=== PATIENT | female | born 1970 | race Caucasian/White ===

== ENCOUNTER → 2018-10-21 | Outpatient (CLI) | payer BC ==
[~2018-10-21] MED LIST: ALBU2.5V8 INH; AMIT10TA PO; ERGO500027 PO; FLUT1DIS3 IH; LEVO175T5 PO; OMEP1CAP18 PO; OXYB5TAB33 PO; SUMA100T4 PO
[2018-10-21 15:20] LABS: BILIRUBIN,URINE NEGATIVE (NEG); CLARITY,URINE CLEAR; COLOR,URINE YELLOW; NITRITE,URINE NEGATIVE (NEG); PROTEIN,URINE NEGATIVE (NEG-TRACE); UROBILINOGEN,URINE 0.2 mg/dL (0.2 mg/dL)
[2018-10-21 15:40] LABS: BACTERIA,URINE 0 /HPF (0-FEW); RBC,URINE 0 /HPF (0-2); WBC,URINE 0 /HPF (0-4)
[2018-10-21 15:54] LABS: BASO % 1 % (0-3); EOS # 0.3 x10^3/uL (0.0-0.7); EOS % 6 % (0-3); HEMATOCRIT 40.8 % (36.0-47.0); HEMOGLOBIN 14.1 g/dL (12.0-15.5); LYMPH # 1.9 x10^3/uL (1.0-4.8); LYMPH % 40 % (24-48); MEAN CORPUSCULAR HEMOGLOBIN 34 pg (25-35); MEAN CORPUSCULAR HGB CONC 35 g/dL (31-37); MEAN CORPUSCULAR VOLUME 97 fL (79-100); MONO # 0.4 x10^3/uL (0.0-1.1); MONO % 9 % (0-9); NEUT # 2.2 x10^3uL (1.8-7.7); NEUT % 46 % (31-73); PLATELET COUNT 192 x10^3/uL (140-400); RED BLOOD COUNT 4.19 x10^6/uL (3.50-5.40); RED CELL DISTRIBUTION WIDTH 13.2 % (11.5-14.5); WHITE BLOOD COUNT 4.7 x10^3/uL (4.0-11.0)
--- NOTE | 2018-10-21 15:54 | EKG ---
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 Electronically Signed On 10-28-2018 11:23:25 MICROWAVE TECHNICIAN by Tee Hurtado
[2018-10-21 16:19] LABS: ALBUMIN 3.5 g/dL (3.4-5.0); ALBUMIN/GLOBULIN RATIO 0.9 (1.0-1.7); CALCIUM 8.8 mg/dL (8.5-10.1); CREATININE 0.8 mg/dL (0.6-1.0); GFR 76.2; POTASSIUM 3.4 mmol/L (3.5-5.1); TOTAL BILIRUBIN 0.2 mg/dL (0.2-1.0); TOTAL PROTEIN 7.2 g/dL (6.4-8.2)
--- NOTE | 2018-10-21 17:20 | RAD ---
CHEST PA LATERAL Clinical indications: PRE OP HYSTERECTOMY ON 10/28/18. HX of ASTHMA Findings: No acute lung infiltrate or pleural effusion or pulmonary edema or lung mass or pneumothorax is seen. The heart size, pulmonary vasculature, mediastinum and both ck are unremarkable. The osseous structures appear intact. Impression: No acute radiographic abnormality is seen. Note-no left or right marker is present on the frontal view chest x-ray. Electronically signed by: Forrest Quiñones MD (10/21/2018 5:16 PM) [place] [id number]
--- NOTE | 2018-10-23 10:08 | NUR ---
FAXED PRE - OP TEST REPORTS TO 'S OFFICE FOR REVIEW 10/22/2018 AT 0960 AND RECEIVED TRANSMITTAL CONFIRMATION. ANESTHESIA TEAM RN VINAY PUTNAM REVIEWED EKG'S PRELIMINARY REPORT 10/22/2018 AT 1005 AND WAS OKAY HE SAID.
== END | disposition home or self-care (01) ==
LOC: SURGPAT 14:56
PROVIDERS: ATTEND Obstetrics & Gynecology
DX: Z01.818 Encounter for other preprocedural examination (principal); E03.9 Hypothyroidism, unspecified; J45.909 Unspecified asthma, uncomplicated; Z90.710 Acquired absence of both cervix and uterus
CPT/HCPCS: 36415; 71046; 80053; 81001; 85025; 93005

== ENCOUNTER 2018-10-28 08:16 | Observation (INO) | payer BC ==
[~2018-10-28] VITALS: Ht 152.4 cm; Wt 84.4 kg
[2018-10-28] VITALS (11 sets, daily range): BP systolic 83–122; BP diastolic 54–72
[~2018-10-28 08:16] MED LIST changes: +HYDROmorphone 2 MG/ML VIAL IV PRN; +IV RINGERS,LACTATED 1000ML 1,000 ML IV SCH; +LIDOCAINE 1% PF 2 ML VIAL. ID PRN; +MORPHINE SULFATE 4 MG/ML VIAL. IV PRN; +ONDANSETRON PF 4 MG/2 ML VIAL. IV PRN; -OXYB5TAB33 PO; +PROCHLORPERAZINE 10 MG/2 ML VIAL. IV PRN; +fentaNYL PF VIAL 100 MCG/2 ML VIAL IV PRN
[2018-10-28] MEDS ORDERED: fentaNYL PF VIAL 100 MCG/2 ML VIAL ONE (08:25)
[2018-10-28] MEDS ORDERED: ROCURONIUM 50 MG/5 ML VIAL. ONE ×2 (08:25→11:47)
[2018-10-28] MEDS ORDERED: PROPOFOL 20 ML IV ONE (08:25)
[2018-10-28] MEDS ORDERED: LIDOCAINE 2% PF Vial for OR 5 ML VIAL. ONE (08:25)
[2018-10-28] MEDS ORDERED: DEXAMETHASONE SOD PHOS 20 MG/5 ML VIAL. ONE (08:25)
[2018-10-28] MEDS ORDERED: MIDAZOLAM HCL/PF 2 MG/2 ML VIAL. ONE (08:25)
[2018-10-28] MEDS ORDERED: ONDANSETRON PF 4 MG/2 ML VIAL. ONE (08:25)
[2018-10-28] MEDS ORDERED: ESTROGENS, CONJ VAGINAL CREAM 30GM TUBE. ONE (09:06)
[2018-10-28] MEDS ORDERED: BUPIVAC MPF-EPI 0.5%-1:200000 30 ML VIAL. ONE (09:06)
[2018-10-28] MEDS ORDERED: METHYLENE BLUE 1% 10 ML VIAL. ONE (09:06)
[2018-10-28] MEDS ORDERED: SCOPOLAMINE 1.5MG PATCH. TD ONE (09:30)
[2018-10-28] MEDS ORDERED: ceFAZolin 2GM PREMIX 2 GM/50 ML BAG IV ONE (10:00)
[2018-10-28] MEDS ORDERED: SUMAtriptan SUCCINATE 100 MG TABLET PO PRN (10:15)
[2018-10-28] MEDS ORDERED: ALBUTEROL SULFATE 2.5 MG/3 ML NEBU. NEB PRN (10:15)
[2018-10-28 10:58] LABS: U PREG PATIENT NEGATIVE (NEG)
[2018-10-28] MEDS ORDERED: NEOSTIGMINE METHYLSULFATE 5 MG/5 ML SYRINGE. ONE (11:26)
[2018-10-28] MEDS ORDERED: GLYCOPYRROLATE 1 MG/5 ML VIAL. ONE (11:26)
[2018-10-28] MEDS ORDERED: SEVOFLURANE > 120 MINUTES. IH ONE (11:49)
--- NOTE | 2018-10-28 12:25 | PDOC ---
BRIEF OPERATIVE NOTE Date: Oct 28, 2018 Pre-Op Diagnosis DUB Post-Op Diagnosis same with bladder adhesions from prior Procedure Performed LAVH/BSO and adhesiolysis Surgeon Dr. Sherita Garner Elastic Yarn Twister GUNNAR Terrazas Anesthesiologist Dr. Cordova Anesthesia Type: General Blood Loss 300cc IV Fluid 1100cc Urine Output 250cc clear via squires Specimens Obtained cervix, uterus, bilateral tubes and ovaries Findings enlarged RV uterus, normal bilateral tubes and right ovary, small functional cyst on left ovary, dense bladder adhesions Complications none Operative Note [id number] SHERITA GARNER MD Oct 28, 2018 12:25
[2018-10-28] MEDS ORDERED: NALOXONE 0.4 MG/ML VIAL. IV PRN (12:30)
[2018-10-28] MEDS ORDERED: HYDROcodone/APAP 5/325MG 1 TAB TABLET PO PRN (12:30)
[2018-10-28] MEDS ORDERED: diphenhydrAMINE HCL 25 MG CAPSULE PO PRN (12:30)
[2018-10-28] MEDS ORDERED: ZOLPIDEM 5 MG TABLET. PO PRN (12:30)
[2018-10-28] MEDS ORDERED: MAG HYDROX/ALUMINUM HYD/SIMETH 30 ML ORAL.SUSP PO PRN (12:30)
[2018-10-28] MEDS ORDERED: CALCIUM CARBONATE 500 MG TAB.CHEW PO PRN (12:30)
[2018-10-28] MEDS ORDERED: ONDANSETRON PF 4 MG/2 ML VIAL. IV PRN (12:30)
[2018-10-28] MEDS ORDERED: MORPHINE SULFATE 4 MG/ML VIAL. IV PRN (12:30)
[2018-10-28] MEDS ORDERED: diphenhydrAMINE 50 MG/ML VIAL IV PRN (12:30)
[2018-10-28] MEDS ORDERED: 0.9 % SODIUM CHLORIDE 10 ML DISP.SYRIN. IV PRN (12:30)
[2018-10-28] MEDS ORDERED: MAGNESIUM HYDROXIDE 2,400 MG/30 ML ORAL.SUSP. PO PRN (12:30)
[2018-10-28] MEDS ORDERED: LACTULOSE 20 GM/30 ML SOLUTION. PO PRN (12:30)
--- NOTE | 2018-10-28 12:55 | OP ---
DATE OF SURGERY: 10/28/2018 PREOPERATIVE DIAGNOSIS: Dysfunctional uterine bleeding. POSTOPERATIVE DIAGNOSES: Dysfunctional uterine bleeding with what appeared to be some mild endometriosis and bladder adhesions from a prior section. PROCEDURE: LAVH, BSO with adhesiolysis. SURGEON: Nabil Lal M.D. CROSS TIE TURNER: Dian Massey RN. ANESTHESIOLOGIST: Brice Cordova MD. ANESTHESIA: General. ESTIMATED BLOOD LOSS: 300 mL. URINE OUTPUT: 250 mL, clear via Thornton catheter. IV FLUIDS: 1100 mL of crystalloid. SPECIMENS: Cervix, uterus, bilateral tubes and ovaries. FINDINGS: An enlarged retroverted uterus, mild endometriosis on the left pelvic sidewall and ureter area, normal bilateral tubes, normal right ovary, small functional cyst on left ovary and dense bladder adhesions. COMPLICATIONS: None. DESCRIPTION OF PROCEDURE: This patient was taken to the operating room where general anesthesia was placed. The patient was placed in dorsal lithotomy position in Jacky stirrups. The patient's abdomen and vagina were prepped and draped in the normal sterile fashion and a Thornton catheter was inserted under sterile technique. After a timeout was performed, a bivalve speculum was placed in the patient's vagina. Single-tooth tenaculum was used to grasp the anterior lip of the cervix. A 0.5% Marcaine with epinephrine 10 mL was used to circumferentially inject around the cervix for both hemodissection and hemostatic purposes later. The Valtchev uterine manipulator was placed through the endocervical os, locked on the single tooth tenaculum and the bivalve speculum was then removed. Top gloves were discarded and changed. Attention was then turned to the abdomen where a small supraumbilical skin incision was made with the scalpel. A curved Maria Alejandra was used to dissect through the subcuticular layer to the fascia. The 5 mm Visiport was used to directly into the abdominal cavity. Opening patient pressure was 3-4 mmHg. Direct abdominal placement was confirmed via the laparoscope. Carbon dioxide gas was used to then appropriately insufflate the abdominal cavity to maintain a pressure of 15 mmHg. The patient was placed in Trendelenburg position and the left lower quadrant port was placed after transilluminating the abdomen finding an area clear of any vasculature, making sure it was clear on the inside, making an incision and placing the 5 mm trocar under direct visualization and 2 mL of air was placed in the trocar cuff here. At this point, the scope was moved to look at the umbilical port. There was a small adhesion in front of it, but the port was actually free of the adhesion and it looked like just omental adhesions, so 2 mL of air was placed in this. We did not touch those umbilical adhesions. We were able to get around it, put the right lower quadrant port in again after finding an area clear on the inside transilluminating the abdomen finding an area clear of any vasculature and making a small incision and placing the 5 mm trocar in and placing 2 mL of air in as well. At this point, the right tube and ovary were elevated, finding the ureter coursing, staying high on the IP ligament just below the ovary, cauterizing and cutting with the LigaSure going over towards the uterus, crossing the right round ligament and getting the right uterine vessels and starting the bladder flap on the right side. This was done exactly the same on the left. The left had a small 1-2 cm clear functional cyst on the ovary, but it was elevated. The ureter was coursing low. There was some scar tissue on the left pelvic sidewall and evidence of what looked like endometriosis along the sidewall and the ureter area on the left, but again staying high on the IP ligament, right under the ovary, cauterizing and cutting with the LigaSure, going over all the way to the uterus and then crossing the left round ligament and then pushing in on the uterus towards the head of the bed and elevating the bladder using the monopolar hook to make an incision and take down some of the bladder adhesions sharply and was able to get them on both sides, so I could get the uterine vessels on both sides. I was able to go below especially on the patient's left side, going down on the left side to the uterosacral ligament, hugging the cervix, staying vertical on the cervix through the cardinal and broad ligaments to the uterosacral. I did not go quite as well in the right side as the bladder did not peel on this side as well, but I was able to get the uterines and go down a little bit. At this point, I felt it was better to go vaginally to see better and get the rest of the bladder flap. So, all instruments were removed from the abdomen. Posterior uterus was completely free and it was blanched and the uterine vessels like I said have been obtained and we were down on the right side, so all instruments were removed from the abdomen and attention was turned vaginally. At this point, the single tooth and Valtchev were removed. A weighted speculum was placed in the patient's vagina. Thyroid Tyler clamps were placed on the anterior and posterior lips of the cervix respectively. A scalpel was used to make a circumferential incision in the cervix. An open Ray-Heri 4 x 4 was used to gently push up the anterior bladder peritoneum and it did push up very nicely, especially on the patient's left side. The cervix was elevated and the posterior cul-de-sac was sharply entered with curved Evans scissors. A #0 Vicryl stitch was used to secure the posterior peritoneum here to the vaginal cuff and it was tagged with a curved Maria Alejandra clamp. The needle was cut and passed off. The short weighted speculum was removed and it was replaced with the long weighted Kasia speculum in the posterior cul-de-sac. At this point, curved Chanell clamps x 2 were placed on the patient's left uterosacral ligament. They were doubly clamped with curved Heaneys, cut with curved Evans scissors and suture ligated x 2 with 0 Vicryl. Second one was taken through the vaginal cuff securing uterosacral ligament to the vaginal cuff. It was tagged with a straight Maria Alejandra clamp and the needle was cut and passed off. This was done exactly the same on the patient's right side, double clamping the uterosacrals with curved Chanell's, cutting with Evans scissors, suture ligating x 2 with 0 Vicryl, taking the second one through the vaginal cuff and tagging it with a straight Maria Alejandra clamp and cutting and passing the needle off. I was able to get in on the patient's left side anteriorly and I took a right angle Mixter around the remaining pedicle and the vaginal LigaSure was used to cauterize the remaining pedicle and I was free on this left side. I could still feel the dense bladder adhesions anteriorly. I was able to remove the anterior Ray-Heri and take a new one and gently push it up even more and then used some Metzenbaum scissors to take it down even more. I took the Mixter around the right side as well, cauterizing and cutting the remaining pedicle. Cervix, uterus, bilateral tubes and ovaries were delivered in total and passed off for permanent pathology. The anterior bladder peritoneum was grasped with a long Allis. A sponge stick was used to examine the pedicles. She was bleeding from the left side just above the uterosacral ligament. A burlisher was placed on this with excellent results and 2-0 Vicryl was used to tie off this bleeding. Once this was done, the long weighted Kasia speculum was removed and replaced with the short weighted vaginal speculum and the sponge stick was used to examine the remaining pedicles, which appeared hemostatic at this point, so 2-0 Vicryl was taken through the anterior bladder peritoneum, left uterosacral ligament, posterior peritoneum and right uterosacral ligament, thus closing the peritoneum in a pursestring like fashion. The right and left uterosacral tags were clipped. The cuff was closed in an anterior to posterior running locked fashion and tied to that posterior cuff tag. A couple of interrupted sutures were placed for hemostasis and once these were done and it was completely hemostatic, the sponge stick was used to examine the pedicle or the vaginal cuff and it was dry. All gloves were discarded and changed and attention was turned back above for a second look. The patient was placed back in Trendelenburg position. Gas was reinsufflated. There were some dried clots, but nothing actively bleeding at all, so copious irrigation rinsed out all the clots. It remained hemostatic. The right and left pericolic gutters were clear, so at this point Tisseel was placed over all the pedicles and the cuff with excellent results. The 2 mL of air were deflated from the right and left lower quadrant ports. They were taken out under direct visualization. They were hemostatic. Gas was released from the umbilical port. The 2 mL of air was used to deflate this trocar and it was removed as well. These are being closed with 4-0 nylon at the skin and injected with 10 mL of local at the end. The patient is currently being awakened from anesthesia. NABIL ALL MD DR: FRANCOIS/debi JOB#: [id number] / [id number]
[2018-10-28] MEDS: fentaNYL PF VIAL 100 MCG/2 ML VIAL IV PRN ×2 (13:05→13:29)
[2018-10-28] MEDS ORDERED: AMMONIA AROMATIC 15% INHALANT AMPUL. ONE ×3 (16:36→21:32)
[2018-10-28] MEDS: oxyCODONE/APAP 5/325 1 TAB TABLET PO PRN ×2 (18:53→19:47)
[2018-10-28] MEDS ORDERED: AMITRIPTYLINE HCL 10 MG TABLET. PO SCH (21:00)
[2018-10-29] MEDS: oxyCODONE/APAP 5/325 1 TAB TABLET PO PRN ×3 (00:19→12:35)
[2018-10-29] MEDS: SIMETHICONE 80 MG TAB.CHEW PO PRN ×2 (04:51→09:31)
[2018-10-29 05:59] VITALS: BP 111/70
[2018-10-29] MEDS ORDERED: LEVOTHYROXINE 175 MCG TABLET PO SCH (06:00)
[2018-10-29 06:36] LABS: GFR 58.9; POTASSIUM 4.6 mmol/L (3.5-5.1)
--- NOTE | 2018-10-29 09:53 | PDOC ---
SURGICAL PROGRESS NOTE Subjective feeling ok this morning. Main complaint is gas pain with the right shoulder pain "exactly like when i had my gallbladder out". Scant vag spotting when wiping. Had some episodes of passing out yesterday after surgery, but up 3 times today without problems. No n/v, tolerating liquids and advancing solids today. pt states feels better this morning than yesterday for sure. steady on her feet and voiding well Vital Signs Vital Signs Date Time Temp Pulse Resp B/P (MAP) Pulse Ox O2 Delivery O2 Flow Rate FiO2 10/29/18 05:59 98.2 89 16 111/70 (84) 98.2 10/28/18 23:01 99 Room Air 10/28/18 12:43 10 I&O Intake and Output 10/29/18 07:01 Intake Total 1710 ml Output Total 550 ml Balance 1160 ml Intake Oral 160 ml IV Total 1550 ml Output Urine Total 250 ml Estimated Blood Loss 300 ml # Voids 3 # Bowel Movements 1 PATIENT HAS A HODGES: No General: Alert, Oriented X3, Cooperative, No acute distress HEENT: Atraumatic Heart: Regular rate Abdomen: Soft, No tenderness, Other (all port sites c/d/i) Extremities: No clubbing, No cyanosis, No edema, No tenderness/swelling Skin: No rashes, No breakdown Neuro: Normal speech Psych/Mental Status: Mental status NL, Mood NL Labs Laboratory Tests Test 10/28/18 08:30 10/29/18 05:54 Urine Test Negative (NEG) Hematocrit 27.3 % (36.0-47.0) Sodium Level 135 mmol/L (136-145) Potassium Level 4.6 mmol/L (3.5-5.1) Chloride Level 101 mmol/L (98-107) Carbon Dioxide Level 26 mmol/L (21-32) Anion Gap 8 (6-14) Blood Urea Nitrogen 13 mg/dL (7-20) Creatinine 1.0 mg/dL (0.6-1.0) Estimated GFR (Cockcroft-Gault) 58.9 Glucose Level 126 mg/dL (70-99) Calcium Level 8.0 mg/dL (8.5-10.1) Laboratory Tests Test 10/29/18 05:54 Hematocrit 27.3 % (36.0-47.0) Sodium Level 135 mmol/L (136-145) Potassium Level 4.6 mmol/L (3.5-5.1) Chloride Level 101 mmol/L (98-107) Carbon Dioxide Level 26 mmol/L (21-32) Anion Gap 8 (6-14) Blood Urea Nitrogen 13 mg/dL (7-20) Creatinine 1.0 mg/dL (0.6-1.0) Estimated GFR (Cockcroft-Gault) 58.9 Glucose Level 126 mg/dL (70-99) Calcium Level 8.0 mg/dL (8.5-10.1) I have reviewed the following labs, vitals, nursing Heme/Onc: Anemia NOS Psych: No pertinent hx Infectious disease: No pertinent hx Problem List DUB, anemia Assessment/Plan POD#1 s/p LAVH/BSO Routine care continue ambulation and advance diet as tolerated if does good this morning then d/c to home later today NPV x 6 weeks light/limited activity x 2 weeks NO driving x 1 week at least and while on narcotic pain meds already has pain pills filled at home\\ otc iron 1-2 times per day with food call or return sooner for any other questions or concerns not limited to but including pain unrelieved with pain meds, increased or unexplained vaginal bleeding or T>100.4 NABIL LAL MD Oct 29, 2018 09:53
--- NOTE | 2018-10-29 09:57 | PDOC3 ---
Discharge Summary Visit Information Date of Admission: Oct 28, 2018 Date of Discharge: Oct 29, 2018 Final Diagnosis DUB and anemia Brief Hospital Course Allergies Allergies Coded Allergies Type Severity Reaction Last Updated Verified No Known Drug Allergies 10/28/18 No Vital Signs Vital Signs Date Time Temp Pulse Resp B/P (MAP) Pulse Ox O2 Delivery O2 Flow Rate FiO2 10/29/18 05:59 98.2 89 16 111/70 (84) 98.2 10/28/18 23:01 99 Room Air 10/28/18 12:43 10 Lab Results Laboratory Tests Test 10/28/18 08:30 10/29/18 05:54 Urine Test Negative (NEG) Hematocrit 27.3 % (36.0-47.0) Sodium Level 135 mmol/L (136-145) Potassium Level 4.6 mmol/L (3.5-5.1) Chloride Level 101 mmol/L (98-107) Carbon Dioxide Level 26 mmol/L (21-32) Anion Gap 8 (6-14) Blood Urea Nitrogen 13 mg/dL (7-20) Creatinine 1.0 mg/dL (0.6-1.0) Estimated GFR (Cockcroft-Gault) 58.9 Glucose Level 126 mg/dL (70-99) Calcium Level 8.0 mg/dL (8.5-10.1) Laboratory Tests Test 10/29/18 05:54 Hematocrit 27.3 % (36.0-47.0) Sodium Level 135 mmol/L (136-145) Potassium Level 4.6 mmol/L (3.5-5.1) Chloride Level 101 mmol/L (98-107) Carbon Dioxide Level 26 mmol/L (21-32) Anion Gap 8 (6-14) Blood Urea Nitrogen 13 mg/dL (7-20) Creatinine 1.0 mg/dL (0.6-1.0) Estimated GFR (Cockcroft-Gault) 58.9 Glucose Level 126 mg/dL (70-99) Calcium Level 8.0 mg/dL (8.5-10.1) Brief Hospital Course Ms. Villegas is a 48 old female who presented with DUB. She underwent and LAVH/ BSO yesterday. She is voiding without catheter this am, scant vaginal spotting , tolerating fluids and oral pain meds. She was slow to move and dizziness was a complaint so will do orthostatic BP/pulse just to be sure she is ok, also remove the scope patch since no N/v. if does well today ambulating and is ok, then will d/c to home later today. She is anemic and will do iron 1-2 times per day with food at home. Discharge Information Condition at Discharge: Stable Follow Up: Weeks Disposition/Orders: D/C to Home Scheduled Amitriptyline Hcl (Amitriptyline Hcl) 10 Mg Tablet, 1 TAB PO QHS for anxiety, # 30 Ref 1 (Reported) Entered as Reported by: BRIAN ESCOTO on 10/21/18 1520 Last Taken: Unknown Dose on 10/27/18 Last Action: Continued on 10/28/18 100 by NABIL LAL Ergocalciferol (Vitamin D2) (Vitamin D2) 50,000 Unit Capsule, 50,000 UNIT PO WEEKLY for supplement, (Reported) Entered as Reported by: BRIAN ESCOTO on 10/21/18 1519 Last Taken: Unknown Dose on 10/25/18 Last Action: HELD on 10/28/181007 by NABIL LAL Fluticasone/Salmeterol (Advair 250-50 Diskus) 1 Each Disk.w.dev, 1 PUFF IH DAILY for congestion, #3 Ref 3 (Reported) Entered as Reported by: BRIAN ESCOTO on 10/21/18 1521 Last Taken: Unknown Dose on 10/27/18 Last Action: HELD on 10/28/18 100 by NABIL LAL Levothyroxine Sodium (Levothyroxine Sodium) 175 Mcg Tablet, 1 TAB PO DAILY for thyroid, #30 Ref 5 (Reported) Entered as Reported by: BRIAN ESCOTO on 10/21/18 1522 Last Taken: Unknown Dose on 10/27/18 Last Action: Continued on 10/28/18 100 by NABIL LAL Omeprazole/Sodium Bicarbonate (Zegerid 20 Mg Capsule) 1 Each Capsule, 1 EACH PO DAILY for reflux, (Reported) Entered as Reported by: BRIAN ESCOTO on 10/21/18 1524 Last Taken: Unknown Dose on 10/27/18 Last Action: HELD on 10/28/181007 by NABIL LAL Scheduled PRN Albuterol Sulfate (Proair Hfa Inhaler) 8.5 Gm Hfa.aer.ad, 2 PUFF INH PRN Q6HRS PRN for SHORTNESS OF BREATH, Ref 0 (Reported) Entered as Reported by: BRIAN ESCOTO on 10/21/18 1518 Last Taken: Unknown Dose on 10/27/18 Last Action: Continued on 10/28/18 100 by NABIL LAL Sumatriptan Succinate (Sumatriptan Succinate) 100 Mg Tablet, 1 TAB PO UD PRN for HEADACHE, #9 Ref 3 (Reported) Entered as Reported by: BRIAN ESCOTO on 10/21/18 1521 Last Taken: Unknown Dose on 10/27/18 Last Action: Continued on 10/28/18 1008 by NABIL LAL Patient Instructions Patient Instructions POD#1 s/p LAVH/BSO Routine care continue ambulation and advance diet as tolerated if does good this morning then d/c to home later today NPV x 6 weeks light/limited activity x 2 weeks NO driving x 1 week at least and while on narcotic pain meds already has pain pills filled at home\ otc iron 1-2 times per day with food call or return sooner for any other questions or concerns not limited to but including pain unrelieved with pain meds, increased or unexplained vaginal bleeding or T>100.4 NABIL LAL MD Oct 29, 2018 09:57
[2018-10-29 10:06] VITALS: BP 123/76
[2018-10-29 10:10] VITALS: BP 117/75
[2018-10-29 10:13] VITALS: BP 101/72
--- NOTE | 2018-10-30 16:08 | PATHOLOGY ---
[facility] Accession Number: [id number] . 01 Material submitted: . UTERUS, CERVIX, BILATERAL FALLOPIAN TUBES, BILATERAL OVARIES . 01 Clinical history: . Dysfunctional uterine bleeding . 02 Diagnosis: Uterus and attached bilateral fallopian tubes and ovaries, laparoscopic assisted vaginal hysterectomy with bilateral salpingo-oophorectomy: - Adenomyosis, uterine corpus, with myometrial hypertrophy (uterine weight 175 grams). - Mild chronic cervicitis with squamous metaplasia, focal. - Secretory endometrium. - Left paratubal cyst and focal paratubal endometriosis. - Hemorrhagic luteal cyst and several small cystic follicles of left ovary. - Cystic follicles of right ovary. LBQ/10/30/2018 . 02 Comment: There is no evidence of malignancy. (JPM/db; 10/30/2018) . 02 Electronically signed: . Adrien Rodarte MD, Pathologist NPI- [id number] . 01 Gross description: . The specimen is received in formalin, labeled "Sunita Villegas, uterus, cervix, bilateral fallopian tubes, bilateral ovaries". Received is a 175 g, 10.6 x 7.1 x 5.1 cm uterus with attached cervix, and attached adnexa, weighing 11 g each. The uterine serosa is pink-graham and smooth in appearance. The 1.5 cm cervical os is surrounded by pale graham, smooth to disrupted ectocervical mucosa. The uterus is oriented using the peritoneal reflection and the anterior paracervical margin is inked black. The uterus is opened laterally to reveal a pale graham, corrugated endocervical canal measuring 3.1 cm in length. The endometrial cavity is triangular measuring 4.9 cm in length by 3.4 cm in width. The endometrium is pale graham, glistening in appearance and measures up to 0.2 cm in thickness. Serial sectioning reveals a graham-pink, trabeculated myometrium measuring up to 2.5 cm in thickness with no grossly distinct nodules or lesions. . The left adnexa consists of a fimbriated fallopian tube measuring 5.6 cm in length by up to 0.6 cm in diameter attached to a 3.2 x 2.5 x 1.3 cm ovary. The fallopian tube displays attached paratubal cysts ranging in size from 0.1 to 0.5 cm filled with clear fluid. Sectioning reveals a pinpoint to patent lumen. Sectioning through the ovary reveals multiple cystic structures ranging in size from 0.3 to 2.2 cm filled with blood-tinged fluid. The remaining cut surfaces display pale graham, normal ovarian stroma. . The right adnexa consists of a fimbriated fallopian tube measuring 6.1 cm in length by up to 0.7 cm in diameter adhesed to a 3.7 x 2.0 x 1.7 cm ovary. Sectioning through the fallopian tube reveals a patent lumen. Sectioning through the ovary reveals several cystic structures ranging in size from 0.3 to 1.7 cm filled with yellow fluid. The remaining cut surfaces display pale graham, normal ovarian stroma. The specimen is submitted representatively as follows: . A1 12:00 cervix A2 6:00 cervix A3 anterior endomyometrium A4 posterior endomyometrium A5-A6 left adnexa A7-A8 right adnexa. (CAA; 10/29/2018) QAC/QAC . 02 Pathologist provided ICD-10: N72, N80.0, N83.202, N83.8 . 02 CPT . 502589 Specimen Comment: A courtesy copy of this report has been sent to Specimen Comment: [phone]. Specimen Comment: Report sent to Performed at: 01 [facility] [address], [place], [place] [id number] MD He Martin MD Phone: [phone] Performed at: 02 [facility] [address] [place], [place] [id number] MD Adrien Rodarte MD Phone: [phone]
== END 2018-10-29 15:15 | disposition home or self-care (01) ==
LOC: SURG 08:16 → EDSTATUS 10:00 → EDUNIT# 10:00 → 3 NORTH 14:23
PROVIDERS: ADMIT Obstetrics & Gynecology; ATTEND Obstetrics & Gynecology
DX: N93.8 Other specified abnormal uterine and vaginal bleeding (principal); N83.202 Unspecified ovarian cyst, left side; N85.4 Malposition of uterus; N73.6 Female pelvic peritoneal adhesions (postinfective); D64.9 Anemia, unspecified; Z85.850 Personal history of malignant neoplasm of thyroid; Z79.899 Other long term (current) drug therapy; Z23 Encounter for immunization
CPT/HCPCS: 36415; 58552; 80048; 81025; 85014; 86850; 86900; 86901; 90471; 90756; 94640; A7015; G0378; G0379; J0690; J1100; J2001; J2250; J2405; J2704; J2710; J3010; J3490; J7030; J7120; 88307; Q9968; Q2035

== ENCOUNTER 2018-11-02 23:06 | Emergency (ER) | payer BC ==
[~2018-11-02] VITALS: Ht 152.4 cm; Wt 81.6 kg
[~2018-11-02 23:06] MED LIST changes: -HYDROmorphone 2 MG/ML VIAL IV PRN; -IV RINGERS,LACTATED 1000ML 1,000 ML IV SCH; -LIDOCAINE 1% PF 2 ML VIAL. ID PRN; -MORPHINE SULFATE 4 MG/ML VIAL. IV PRN; -ONDANSETRON PF 4 MG/2 ML VIAL. IV PRN; -PROCHLORPERAZINE 10 MG/2 ML VIAL. IV PRN; -fentaNYL PF VIAL 100 MCG/2 ML VIAL IV PRN
[2018-11-02] MEDS ORDERED: fentaNYL PF VIAL 100 MCG/2 ML VIAL IV ONE (23:30)
[2018-11-02] MEDS ORDERED: ONDANSETRON PF 4 MG/2 ML VIAL. IV ONE (23:30)
[2018-11-02] MEDS ORDERED: IV NORMAL SALINE 1000ML BAG 1,000 ML IV ONE (23:30)
[2018-11-02 23:51] LABS: BASO % 0 % (0-3); EOS # 0.2 x10^3/uL (0.0-0.7); EOS % 3 % (0-3); HEMATOCRIT 26.1 % (36.0-47.0); HEMOGLOBIN 9.4 g/dL (12.0-15.5); LYMPH # 1.5 x10^3/uL (1.0-4.8); LYMPH % 23 % (24-48); MEAN CORPUSCULAR HEMOGLOBIN 35 pg (25-35); MEAN CORPUSCULAR HGB CONC 36 g/dL (31-37); MEAN CORPUSCULAR VOLUME 97 fL (79-100); MONO # 0.5 x10^3/uL (0.0-1.1); MONO % 8 % (0-9); NEUT # 4.4 x10^3uL (1.8-7.7); NEUT % 66 % (31-73); PLATELET COUNT 269 x10^3/uL (140-400); RED BLOOD COUNT 2.69 x10^6/uL (3.50-5.40); RED CELL DISTRIBUTION WIDTH 13.3 % (11.5-14.5); WHITE BLOOD COUNT 6.7 x10^3/uL (4.0-11.0)
[2018-11-02 23:52] LABS: BILIRUBIN,URINE NEGATIVE (NEG); CLARITY,URINE CLEAR; COLOR,URINE YELLOW; NITRITE,URINE NEGATIVE (NEG); PROTEIN,URINE NEGATIVE (NEG-TRACE); UROBILINOGEN,URINE 0.2 mg/dL (0.2 mg/dL)
[2018-11-02] MEDS ORDERED: CONTRAST GIVEN. MC PRN (23:55)
[2018-11-02] MEDS ORDERED: IOHEXOL 300 MG/ML 100ML VIAL. IV ONE (23:55)
[2018-11-02 23:59] LABS: AMORPHOUS SEDIMENT,UR PRESENT /HPF; BACTERIA,URINE 0 /HPF (0-FEW); CALCIUM 8.6 mg/dL (8.5-10.1); GFR 58.9; POTASSIUM 3.4 mmol/L (3.5-5.1); SQUAMOUS EPITHELIAL CELL,UR FEW /LPF
[2018-11-03 00:02] LABS: PROTHROMBIN TIME PATIENT 12.9 SEC (11.7-14.0)
[2018-11-03 00:05] LABS: ALBUMIN 3.1 g/dL (3.4-5.0); ALBUMIN/GLOBULIN RATIO 0.8 (1.0-1.7); TOTAL BILIRUBIN 0.5 mg/dL (0.2-1.0); TOTAL PROTEIN 6.8 g/dL (6.4-8.2)
--- NOTE | 2018-11-03 00:54 | RAD ---
CT abdomen and pelvis with contrast: Reason for examination: Pain and cramping. Postop hysterectomy. Evaluate for perforation or abscess. Helical images were obtained through the abdomen and pelvis with intravenous administration of 75 cc Omnipaque 300. Reconstruction was performed in sagittal and coronal planes. Exposure: One or more of the following individualized dose reduction techniques were utilized for this examination: 1. Automated exposure control 2. Adjustment of the mA and/or kV according to patient size 3. Use of iterative reconstruction technique. The lung bases are clear. The heart size is normal with no pericardial effusion. No abnormality seen at the liver, spleen, adrenal glands or pancreas. The gallbladder surgically absent. The abdominal aorta and inferior vena cava show no acute abnormalities. The kidneys show no renal masses, renal calculi, hydronephrosis or evidence of obstructive uropathy. The appendix is not identified. The intestinal tract shows no abnormally dilated loops of bowel or thickened bowel cantrell and no bowel obstruction is seen. The stomach is not distended. There is no evidence of diverticulosis or diverticulitis. No abnormality seen at the bladder. Uterus is surgically absent. There is some soft tissue density in the pelvis measuring approximately 6.8 x 4.0 x 4.1 cm in greatest dimensions which may represent postop hematoma. No air is seen at the site to suggest abscess but clinical correlation follow-up is recommended. No acute bony abnormalities are seen. IMPRESSION: Postoperative changes in the pelvis from hysterectomy with a 6.8 x 4.0 x 4.1 cm soft tissue density in the pelvis which may represent a postop hematoma. No air is seen to suggest abscess but recommend clinical correlation and follow-up. Electronically signed by: Ro Rodriguez MD (11/03/2018 12:50 AM) [id number]
[2018-11-03 01:00] VITALS: BP 125/70
[2018-11-03] MEDS ORDERED: OXYB5TAB33 PO (01:23)
[2018-11-03] MEDS ORDERED: fentaNYL PF VIAL 100 MCG/2 ML VIAL IV ONE (01:30)
[2018-11-03] MEDS ORDERED: OXYBUTYNIN CHLORIDE 5 MG TABLET PO STA (01:30)
--- NOTE | 2018-11-03 01:51 | PHYS DOC ---
Past Medical History Past Medical History: Asthma, Endometriosis, Hypothyroid Past Surgical History: Cholecystectomy, , Hysterectomy Additional Past Surgical Histo: R.SHOULDER REPAIR, THYROIDECTOMY Alcohol Use: Rarely Drug Use: None Adult General Chief Complaint Chief Complaint: ABDOMINAL PAIN HPI HPI Patient is a 48 year old f p/w along with cc of abdo pain. lower abdomen, crampy pressure with urination no fever normal bm today some vaginal bleeding, feels like spotting mostly the last 24 hours or so maybe a little more symptoms moderate slowly worsening with time Review of Systems Review of Systems Constitutional: Denies fever or chills [] Eyes: Denies change in visual acuity, redness, or eye pain [] HENT: Denies nasal congestion or sore throat [] Respiratory: Denies cough or shortness of breath [] Musculoskeletal: Denies back pain or joint pain [] Integument: Denies rash or skin lesions [] All other systems were reviewed and found to be within normal limits, except as documented in this note. Current Medications Current Medications Current Medications Medications (Trade) Dose Ordered Sig/Chelita Start Time Stop Time Status Last Admin Dose Admin Fentanyl Citrate (Fentanyl 2ml Vial) 50 mcg 1X ONCE 11/03/18 01:30 11/03/18 01:32 DC 11/03/18 01:30 50 MCG Info (CONTRAST GIVEN -- Rx MONITORING) 1 each PRN DAILY PRN 11/02/18 23:55 11/03/18 01:42 DC Iohexol (Omnipaque 300 Mg/ml) 75 ml 1X ONCE 11/02/18 23:55 11/02/18 23:56 DC 11/03/18 00:11 75 ML Ondansetron HCl (Zofran) 4 mg 1X ONCE 11/02/18 23:30 11/02/18 23:33 DC 11/02/18 23:30 4 MG Oxybutynin Chloride (Ditropan) 5 mg 1X STAT 11/03/18 01:30 11/03/18 01:32 DC 11/03/18 01:30 5 MG Sodium Chloride 1,000 ml @ 1,000 mls/hr 1X ONCE 11/02/18 23:30 11/03/18 00:29 DC 11/02/18 23:30 1,000 MLS/HR Allergies Allergies Allergies Coded Allergies Type Severity Reaction Last Updated Verified No Known Drug Allergies 10/28/18 No Physical Exam Physical Exam Constitutional: Well developed, well nourished, no acute distress, non-toxic appearance. [] HENT: Normocephalic, atraumatic, bilateral external ears normal, oropharynx moist, no oral exudates, nose normal. [] Eyes: PERRLA, EOMI, conjunctiva normal, no discharge. [] Neck: Normal range of motion, no tenderness, supple, no stridor. [] Cardiovascular:Heart rate regular rhythm, no murmur [] Lungs & Thorax: Bilateral breath sounds clear to auscultation [] Abdomen: Bowel sounds normal, soft, mild suprapubic tenderness, no masses, no pulsatile masses. [] Skin: Warm, dry, no erythema, no rash. [] Back: No tenderness, no CVA tenderness. [] Extremities: No tenderness, no cyanosis, no clubbing, ROM intact, no edema. [] Neurologic: Alert and oriented X 3, normal motor function, normal sensory function, no focal deficits noted. [] Psychologic: Affect normal, judgement normal, mood normal. [] Current Patient Data Vital Signs Vital Signs Date Time Temp Pulse Resp B/P (MAP) Pulse Ox O2 Delivery O2 Flow Rate FiO2 11/02/18 23:10 98.8 95 20 131/83 (99) 100 Room Air 98.8 Lab Values Laboratory Tests Test 11/02/18 23:42 White Blood Count 6.7 x10^3/uL (4.0-11.0) Red Blood Count 2.69 x10^6/uL (3.50-5.40) L Hemoglobin 9.4 g/dL (12.0-15.5) L Hematocrit 26.1 % (36.0-47.0) L Mean Corpuscular Volume 97 fL (79-100) Mean Corpuscular Hemoglobin 35 pg (25-35) Mean Corpuscular Hemoglobin Concent 36 g/dL (31-37) Red Cell Distribution Width 13.3 % (11.5-14.5) Platelet Count 269 x10^3/uL (140-400) Neutrophils (%) (Auto) 66 % (31-73) Lymphocytes (%) (Auto) 23 % (24-48) L Monocytes (%) (Auto) 8 % (0-9) Eosinophils (%) (Auto) 3 % (0-3) Basophils (%) (Auto) 0 % (0-3) Neutrophils # (Auto) 4.4 x10^3uL (1.8-7.7) Lymphocytes # (Auto) 1.5 x10^3/uL (1.0-4.8) Monocytes # (Auto) 0.5 x10^3/uL (0.0-1.1) Eosinophils # (Auto) 0.2 x10^3/uL (0.0-0.7) Basophils # (Auto) 0.0 x10^3/uL (0.0-0.2) Prothrombin Time 12.9 SEC (11.7-14.0) Prothrombin Time INR 1.0 (0.8-1.1) Urine Collection Type Unknown Urine Color Yellow Urine Clarity Clear Urine pH 6.0 Urine Specific [place] 1.020 Urine Protein Negative mg/dL (NEG-TRACE) Urine Glucose (UA) Negative mg/dL (NEG) Urine Ketones (Stick) Negative mg/dL (NEG) Urine Blood Large (NEG) Urine Nitrite Negative (NEG) Urine Bilirubin Negative (NEG) Urine Urobilinogen Dipstick 0.2 mg/dL (0.2 mg/dL) Urine Leukocyte Esterase Trace (NEG) Urine RBC 3-5 /HPF (0-2) Urine WBC 1-4 /HPF (0-4) Urine Squamous Epithelial Cells Few /LPF Urine Amorphous Sediment Present /HPF Urine Bacteria 0 /HPF (0-FEW) Urine Mucus Mod /LPF Sodium Level 138 mmol/L (136-145) Potassium Level 3.4 mmol/L (3.5-5.1) L Chloride Level 102 mmol/L (98-107) Carbon Dioxide Level 28 mmol/L (21-32) Anion Gap 8 (6-14) Blood Urea Nitrogen 12 mg/dL (7-20) Creatinine 1.0 mg/dL (0.6-1.0) Estimated GFR (Cockcroft-Gault) 58.9 BUN/Creatinine Ratio 12 (6-20) Glucose Level 101 mg/dL (70-99) H Calcium Level 8.6 mg/dL (8.5-10.1) Total Bilirubin 0.5 mg/dL (0.2-1.0) Aspartate Amino Transferase (AST) 18 U/L (15-37) Alanine Aminotransferase (ALT) 24 U/L (14-59) Alkaline Phosphatase 57 U/L (46-116) Total Protein 6.8 g/dL (6.4-8.2) Albumin 3.1 g/dL (3.4-5.0) L Albumin/Globulin Ratio 0.8 (1.0-1.7) L Laboratory Tests 11/02/18 23:42 Laboratory Tests 11/02/18 23:42 EKG EKG [] Radiology/Procedures Radiology/Procedures [] Impressions: IMPRESSION: Postoperative changes in the pelvis from hysterectomy with a 6.8 x 4.0 x 4.1 cm soft tissue density in the pelvis which may represent a postop hematoma. No air is seen to suggest abscess but recommend clinical correlation and follow-up. Electronically signed by: Ro Rodriguez MD (11/03/2018 12:50 AM) [facility] Course & Med Decision Making Course & Med Decision Making Pertinent Labs and Imaging studies reviewed. (See chart for details) []d/w dr chey menard 1 am, reviewed labs and ct imaging indetail. the hct is similar x two checks from postop course, she remembers this patient well. likley stable hematoma. ok to go home take the macrobid that she prescribed her earlier (they talked on the phone earlier in the day) pt also requests bladder spasm med, given. Dragon Disclaimer Dragon Disclaimer This electronic medical record was generated, in whole or in part, using a voice recognition dictation system. Departure Departure Impression: Primary Impression: Hematoma Disposition: 01 HOME, SELF-CARE Condition: STABLE Patient Instructions: Hysterectomy, Care After, [id number] Additional Instructions: it appears that you have a postoperative hematoma. it appears stable. please take pain medication, antibiotics and follow up with dr menard next week. Scripts Oxybutynin Chloride (DITROPAN XL) 5 Mg Tab.er.24 1 TAB PO DAILY, #30 TAB 0 Refills Prov: LIANG MOSS MD 11/03/18 LIANG MOSS MD Nov 03, 2018 01:51
== END 2018-11-03 01:42 | disposition home or self-care (01) ==
LOC: ER 23:06
DX: N99.840 Postprocedural hematoma of a genitourinary system organ or structure following a genitourinary system procedure (principal); J45.909 Unspecified asthma, uncomplicated; E03.9 Hypothyroidism, unspecified; Z90.49 Acquired absence of other specified parts of digestive tract; Z90.710 Acquired absence of both cervix and uterus
CPT/HCPCS: 36415; 74177; 80053; 81001; 85025; 85610; 87086; 96374; 96375; 96376; 99284; J2405; J3010; J7030; Q9967

== ENCOUNTER → 2021-06-28 | Day surgery (SDC) | payer OTHER ==
[2021-06-27 10:54] VITALS: BP 159/84
[~2021-06-28] VITALS: Ht 152.4 cm; Wt 86.4 kg
[~2021-06-28] MED LIST changes: +CALC500T54 PO; +IV RINGERS,LACTATED 1000ML 1,000 ML IV SCH; +LIDOCAINE 2% PF 5 ML VIAL. ONE; +OMEP1CAP25 PO; +OXYB5TAB33 PO; +POTASSIUM OTC PO; +PROPOFOL 10 MG/ML (20ML) VIAL. IV ONE; +VITA0.4T17 PO
[2021-06-28 09:54] VITALS: BP 128/73
--- NOTE | 2021-06-29 16:11 | PATHOLOGY ---
[facility] Accession Number: [id number] . 01 Material submitted: . PART A: small bowel - SMALL BOWEL BIOPSY PART B: gastrointestinal site - BIOPSY GASTRIC ANTRUM AND BODY PART C: esophagus - DISTAL ESOPHAGEAL BIOPSY. Modifiers: distal PART D: stomach - BIOPSY FUNDUS POLYP . 01 Clinical history: . GERD EGD REFLUX . 02 Diagnosis: A. Small bowel biopsy: - No diagnostic abnormalities. . B. Gastric biopsy, gastric antrum and gastric body: - Chronic gastritis, mild. . C. Esophageal biopsy, distal esophagus: - Reflux esophagitis. . D. Gastric biopsy, gastric fundus polyp: - Fundic gland polyp. (JPM:lupe; 06/29/2021) [facility] [place]/29/2021 1517 Local . 02 Comment: Sections of the small bowel biopsy reveal segments of duodenal mucosa showing congestion and containing a few small mucosal-associated lymphoid aggregates. Where best oriented, the mucosal villi show no sprue-like changes or significant inflammatory changes. . Sections of the gastric biopsy reveal segments of gastric antral and gastric body mucosa showing congestion and mild chronic inflammation. A properly controlled immunoperoxidase stain for Helicobacter is negative for Helicobacter organisms. . Sections of the distal esophageal biopsy reveal segments of hyperplastic squamous esophageal mucosa, esophagogastric mucosa, and gastric mucosa showing mild to moderate chronic inflammation. The findings are supportive of the diagnosis of reflux esophagitis. There is no evidence of Germain's change, dysplasia, or malignancy. . Sections of the gastric fundus biopsy reveal a fundic gland polyp. There are no adenomatous changes or evidence of malignancy. (JPM:lupe; 06/29/2021) . . Special stain performed: Immunoperoxidase stain for Helicobacter on B1 . Electronically signed: . Adrien Rodarte MD, Pathologist NPI- [id number] . 01 Gross description: . A. The specimen is received in formalin, labeled "Villegas, Sunita, small bowel bx". Received are 4 segments of pale graham tissue ranging in size from 0.2 cm to 0.4 cm in maximum dimensions. The specimen is submitted entirely in cassette A1. . B. The specimen is received in formalin, labeled "Villegas, Sunita, BX gastric antrum". Received are 4 segments of pale graham tissue ranging in size from 0.3 to 0.5 cm in maximum dimensions. The specimen is submitted entirely in cassette B1. . C. The specimen is received in formalin, labeled "Villegas, Sunita, distal esophageal BX ". Received are 2 segments of pale graham tissue ranging in size from 0.2 to 0.7 cm in maximum dimensions. The specimen is submitted entirely in cassette C1. . D. The specimen is received in formalin, labeled "Flaherty, Valarie, BX fundus polyp". Received are 2 segments of pale graham tissue ranging in size from 0.3 to 0.4 cm in maximum dimensions. The specimen is submitted entirely in cassette D1.([facility]; 06/28/2021) [facility] 06/29/2021 1009 Local . 02 Pathologist provided ICD-10: K29.50, K21.00, K31.7 . 02 CPT . 371398, 801640, 574027, 818962, [id number] Specimen Comment: A courtesy copy of this report has been sent to [phone] Specimen Comment: Report sent to , DR LAL / DR OLEARY Performed at: 01 [facility] [address], [place] [id number] MD Real June MD Phone: [phone] Performed at: 02 [facility] [address] [place], [place] [id number] MD Adrien Rodarte MD Phone: [phone]
== END | disposition home or self-care (01) ==
LOC: ENDOS 08:31
PROVIDERS: ATTEND Internal Medicine Gastroenterology
DX: K21.00 Gastro-esophageal reflux disease with esophagitis, without bleeding (principal); K29.50 Unspecified chronic gastritis without bleeding; K31.7 Polyp of stomach and duodenum; K44.9 Diaphragmatic hernia without obstruction or gangrene; K31.89 Other diseases of stomach and duodenum; I10 Essential (primary) hypertension; J45.909 Unspecified asthma, uncomplicated; E66.9 Obesity, unspecified; E03.9 Hypothyroidism, unspecified; F41.9 Anxiety disorder, unspecified; Z90.710 Acquired absence of both cervix and uterus; Z90.49 Acquired absence of other specified parts of digestive tract; Z98.890 Other specified postprocedural states; Z79.899 Other long term (current) drug therapy; Z72.89 Other problems related to lifestyle
CPT/HCPCS: 43239; 88305; 88342; J2704